=== PATIENT | male | born 1970 | race Caucasian/White ===

== ENCOUNTER 2023-09-02 06:20 | Day surgery (SDC) | payer OTHER, SELFPAY ==
[2023-07-24 14:44] VITALS: BMI 24.6
[2023-08-14 11:22] VITALS: BMI 21.4
--- NOTE | 2023-09-02 07:17 | P.PNAN_ITS ---
Anes - Initial Pre Proc Eval Procedure: Operation Date: 09/02/23 10:00 Proposed Procedures p Diagnostic Colonoscopy - Timothy Alonso MD Date/Time: 09/02/23 07:17 Surgeon: Timothy Alonso MD Pre Op Diagnosis: History of Colon Polyps Patient Data Age: 53 Gender: M Height: 1.91 m Weight: 77.7 kg Allergies Allergy/AdvReac Type Severity Reaction Status Date / Time No Known Allergies Allergy Verified 09/02/23 08:44 Home Medications Medication Instructions Recorded Confirmed Type Elderberry 500 mg PO DIRECTED 08/14/23 09/02/23 History L.acidophil-B.animalis, bifidum, 1 cap PO DIRECTED 08/14/23 09/02/23 History infantis, long 3 billion cell capsule ascorbic acid (vitamin C) 2,000 mg 2,000 mg PO DAILY 08/14/23 09/02/23 History tablet,extended release aspirin 81 mg capsule 81 mg PO DAILY 08/14/23 09/02/23 History cholecalciferol (vitamin D3) 125 125 mcg PO DAILY 08/14/23 09/02/23 History mcg (5,000 unit) tablet (Vitamin D3) coQ10 (ubiquinol) 600 mg PO DIRECTED 08/14/23 09/02/23 History cyanocobalamin (vitamin B-12) 1,000 mcg PO DAILY 08/14/23 09/02/23 History 1,000 mcg tablet (Vitamin B-12) [id number] C-Mn 500 1 cap PO DIRECTED 08/14/23 09/02/23 History mg-400 mg capsule multivitamin 1 tablet PO DAILY 08/14/23 09/02/23 History omega-3 fatty acids 1 cap PO DIRECTED 08/14/23 09/02/23 History tumeric 100 mg-gwen 150 mg-olive 1 cap PO DIRECTED 08/14/23 09/02/23 History 50 mg-oreg 150 mg-caprylate capsule Patient hx anesthesia problems: none Family hx anesthesia problems: none Results Review: All pre-operative results and documents have been reviewed as part of the pre- operative evaluation. PMFSH Past Medical History Medical History (Updated 09/02/23 @ 09:49 by Timothy Alonso MD) Ankle fracture, left Family history of colon cancer History of partial replacement of left hip joint using bipolar prosthesis Tubular adenoma of colon Family History Family History Father Carcinoma of colon Coronary artery disease Mother Diabetes mellitus Social History Social History Smoking status: Never smoker Alcohol use details: very rarely, 2 per month Substance use: current Substance use type: does not use Spiritual care concerns: No Anes - Eval Final PreProcedure Day of Procedure 09/02/23 07:17 Patient weight: normal Heart: regular rate and rhythm Lungs: clear to auscultation and normal air movement Airway: Mallampati scale class II Neurological: alert and oriented Last oral intake: >/= 8 hours ASA classification: I Emergent: no Anesthetic plan: proceed Anesthesia type and monitoring: general GIVS and standard monitoring Results Review: All pre-operative results and documents have been reviewed as part of the pre- operative evaluation. Informed Consent: The patient's anesthetic plan and its attendant risks and benefits were discussed with the patient/family/POA. Questions were solicited and answers provided to the satisfaction of the patient/family/POA.
[2023-09-02 08:51] VITALS: BP 109/87; PULSE 83; RESP 16; TEMP 36.9; O2SAT 100; BMI 21.5
[2023-09-02] MEDS: LACTATED RINGERS 1,000 ML 150 ML IV CONT (09:09)
--- NOTE | 2023-09-02 09:48 | PM.HPGS ---
History of Present Illness History of Present Illness Consent: Risks, benefits, and alternatives have been discussed and questions answered. Patient agrees to proceed with procedure. Chief complaint: History of Colon Polyps Narrative: Juan Navarrete is a 53 year old male with colon polyp 5 years ago, father and uncles in both paternal and maternal side with colon cancer Review of Systems Constitutional: Constitutional: Denies headache(s) and Denies weakness Eyes: Eyes: Denies blurry vision ENT: Reports Normal hearing present, Denies headache(s) and Denies neck pain Cardiovascular: Cardiovascular: Denies chest pain and Denies dyspnea Respiratory: Respiratory: Denies dyspnea Gastrointestinal: Gastrointestinal: Reports no additional gastrointestinal complaints Genitourinary: Genitourinary: Denies dysuria Musculoskeletal: Musculoskeletal: Denies neck pain Integumentary/Breasts: Skin/Breast: Denies dry skin Neurologic: Reports Normal hearing present, Denies headache(s) and Denies weakness Psychiatric: Psychiatric: Denies anxiety Endocrine: Endocrine: Denies change in body appearance Hematologic/Lymphatic: Hematologic/Lymphatic: Denies easy bleeding Allergic/Immunologic: Allergic/Immunologic: Denies urticaria PMF Past Medical History Medical History (Updated 09/02/23 @ 09:49 by Timothy Alonso MD) Ankle fracture, left Family history of colon cancer History of partial replacement of left hip joint using bipolar prosthesis Tubular adenoma of colon Family History Family History Father Carcinoma of colon Coronary artery disease Mother Diabetes mellitus Social History Social History Smoking status: Never smoker Alcohol use details: very rarely, 2 per month Substance use: current Substance use type: does not use Spiritual care concerns: No Meds Home Medications and Allergies Home Medications Medication Instructions Recorded Confirmed Type Elderberry 500 mg PO DIRECTED 08/14/23 09/02/23 History L.acidophil-B.animalis, bifidum, 1 cap PO DIRECTED 08/14/23 09/02/23 History infantis, long 3 billion cell capsule ascorbic acid (vitamin C) 2,000 mg 2,000 mg PO DAILY 08/14/23 09/02/23 History tablet,extended release aspirin 81 mg capsule 81 mg PO DAILY 08/14/23 09/02/23 History cholecalciferol (vitamin D3) 125 125 mcg PO DAILY 08/14/23 09/02/23 History mcg (5,000 unit) tablet (Vitamin D3) coQ10 (ubiquinol) 600 mg PO DIRECTED 08/14/23 09/02/23 History cyanocobalamin (vitamin B-12) 1,000 mcg PO DAILY 08/14/23 09/02/23 History 1,000 mcg tablet (Vitamin B-12) [id number]-[id number] C-Mn 500 1 cap PO DIRECTED 08/14/23 09/02/23 History mg-400 mg capsule multivitamin 1 tablet PO DAILY 08/14/23 09/02/23 History omega-3 fatty acids 1 cap PO DIRECTED 08/14/23 09/02/23 History tumeric 100 mg-gwen 150 mg-olive 1 cap PO DIRECTED 08/14/23 09/02/23 History 50 mg-oreg 150 mg-caprylate capsule Allergies Allergy/AdvReac Type Severity Reaction Status Date / Time No Known Allergies Allergy Verified 09/02/23 08:44 Vital Signs Vital Signs - 24 hr 09/02/23 08:51 Temperature 98.4 F Pulse Rate 83 Respiratory Rate 16 Blood Pressure 109/87 Pulse Oximetry 100 Oxygen Delivery Room Air Exam Const: General: comfortable and no acute distress HENMT: Face/Nose/Sinus: Normal nares present Eyes: General: appearance normal, both eyes and all related structures Neck: Neck: no JVD Resp: Auscultation: clear to auscultation bilaterally Cardio: Rate: regular rate Rhythm: regular rhythm GI: Inspection: non-distended GI Palp: Yes Soft to palpation Skin: General skin exam: normal color Neuro: General: gait normal Speech: normal speech Extrem: General: normal to inspection Psych: Mental Status: mental sta
[2023-09-02 10:16] VITALS: BP 88/61; PULSE 79; RESP 16; O2SAT 100
[2023-09-02 10:25] VITALS: BP 100/60; PULSE 76; RESP 16; O2SAT 100
[2023-09-02 10:35] VITALS: BP 96/64; PULSE 75; RESP 16; O2SAT 100
[2023-09-02 10:49] VITALS: BP 103/74; PULSE 74; RESP 16; O2SAT 100
--- NOTE | 2023-09-02 13:49 | WPDANESPN ---
Anes - Prog Note Post-Op Date/Time: 09/02/23 13:49 Cardiovascular status: normal Respiratory status: normal Airway patency: baseline Mental status: baseline Post-Op hydration status: normal Vital Signs: Last Vital Signs Temp 36.9 C 09/02/23 08:51 Pulse 74 09/02/23 10:49 Resp 16 09/02/23 10:49 BP 103/74 09/02/23 10:49 Pulse Ox 100 09/02/23 10:49 O2 Del Method Room Air 09/02/23 10:49 Pain Score (VAS): 0 I/O: Intake & Output 09/01/23 09/02/23 09/02/23 23:59 07:59 15:59 Intake Total 700 Balance 700 Post-procedural complaints: none Patient Feedback: Patient satisfied with anesthetic care. Other Findings: Patient vital signs back to baseline. Patient denies nausea and vomiting. Patient's pain under control. Patient OK for discharge.
== END 2023-09-02 10:59 | disposition home or self-care (01) ==
PROVIDERS: PCP Emergency Medicine; Visit Provider Internal Medicine Gastroenterology
PROC: 0DJD8ZZ Inspection of Lower Intestinal Tract, Via Natural or Artificial Opening Endoscopic (ICD-10-PCS; CPT 45378; principal; 2023-09-02 10:00)
DX: Z86.010 Personal history of colon polyps (principal); K64.8 Other hemorrhoids
CPT/HCPCS: 45378